=== PATIENT | female | born 1980 | race Caucasian/White ===

== ENCOUNTER 2018-03-01 17:13 | Emergency (ER) | payer BC, OTHER, SELFPAY ==
[2018-03-01 18:14] LABS: Urine Blood 3+ (NEG); Urine Glucose NEGATIVE (NEG); Urine Protein NEGATIVE (NEG); Urine Specific Gravity >1.030 (1.005-1.030); Urine pH 5.5 (5.0-7.0)
[2018-03-01 18:23] LABS: Absolute Monocytes 0.7 K/uL (0.1-1.3); Absolute Neutrophil 9.2 K/uL (1.8-8.0); Basophils % 1.2 % (0-1.3); Eosinophils % 1.2 % (0-4.4); Hematocrit 41.5 % (36.0-45.0); Lymphocytes % 22.7 % (15.3-44.8); MCH 30.2 pg (27.0-35.0); MCV 90.9 fL (80-100); MPV 7.7 fL (7.6-11.3); Monocytes % 5.4 % (3.3-12.3); RBC Red Blood Cell Count 4.56 M/uL (3.86-4.86)
[2018-03-01 18:31] LABS: Bicarbonate 25 mEq/L (21-31); Glucose Level 113 mg/dL (65-120); Potassium 3.8 mEq/L (3.6-5.0); Sodium Level 136 mEq/L (135-145)
[2018-03-01 18:32] LABS: BUN Blood Urea Nitrogen 11 mg/dL (6-20)
--- NOTE | 2018-03-01 19:20 | RAD REPORT ---
EXAM DESCRIPTION: US - Transvaginal OB - 03/01/2018 6:47 pm CLINICAL HISTORY: Vaginal bleeding. COMPARISON: None. FINDINGS: The uterus is normal in size, shape and echotexture. The uterus measures 9.4 x 5.9 x 5.6 c m. The endometrial stripe measures mildly thickened measuring 15 mm. No endometrial sac or other abnorma lity seen. Both ovaries are normal in size, shape and echotexture. The right ovary measures 2.1 x 2.3 x 1.2 cm. The left ovary measures 2.2 x 1.7 x 1.2 cm. No ovarian or parovarian lesions. No adnexal masses. Normal Doppler blood flow was demonstrated to both ovaries. IMPRESSION: No retained products seen.
--- NOTE | 2018-03-01 21:15 | ER ---
Nurse's Notes [facility] Name: Bertha Vargas Age: 38 yrs Sex: Female : 1980 Arrival Date: 03/01/2018 Time: 17:15 Bed 16 Private MD: Diagnosis: Missed Presentation: 03/01 17:18 Presenting complaint: Patient states: "I think I am having a miscarriage.". Transition lk1 of care: patient was not received from another setting of care. Onset of symptoms was February 27, 2018. Care prior to arrival: None. 17:18 Method Of Arrival: Ambulatory lk1 17:18 Acuity: JOSE 3 lk1 Triage Assessment: 17:19 General: Appears in no apparent distress. Behavior is calm, cooperative, appropriate lk1 for age. Pain: Denies pain. : Reports vaginal bleeding that is with clots, heavy flow. 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 - Social history:: Smoking status: Patient/guardian denies using tobacco. Screenin:16 Abuse screen: Denies threats or abuse. Denies injuries from another. Nutritional iw screening: No deficits noted. Tuberculosis screening: No symptoms or risk factors identified. Fall Risk IV access (20 points). Assessment: 18:00 Obstetrical Assessment: General assessment:. General: Appears in no apparent distress. iw comfortable. Pain: Complains of pain in abdomen Quality of pain is described as crampy. Neuro: Level of Consciousness is awake, alert, obeys commands, Oriented to person, place, time, situation. : Reports cramping, vaginal bleeding that is with clots, moderate flow. Derm: Skin is pink, warm \\T\\ dry. Musculoskeletal: Range of motion: intact in all extremities. 19:43 General: Appears in no apparent distress. comfortable, Behavior is calm, cooperative, ao appropriate for age. Pain: Denies pain. Neuro: Level of Consciousness is awake, alert, obeys commands, Oriented to person, place, time, situation, Moves all extremities. Speech is normal, Facial symmetry appears normal. Cardiovascular: Heart tones S1 S2 Capillary refill < 3 seconds Patient's skin is warm and dry. Respiratory: Airway is patent Respiratory effort is even, unlabored, Respiratory pattern is regular, symmetrical. GI: Abdomen is non-distended. : Reports cramping, vaginal bleeding that is with clots, moderate flow. Derm: Skin is pink, warm \\T\\ dry. 21:02 Reassessment: Patient appears in no apparent distress at this time. No changes from ao previously documented assessment. Patient and/or family updated on plan of care and expected duration. Pain level reassessed. Patient is alert, oriented x 3, equal unlabored respirations, skin warm/dry/pink. Marcelo RN PATIENT SERVICES at bedside doing a pelvic exam. Vital Signs: 17:19 BP 152 / 98; Pulse 100; Resp 15; Temp 97.6(TE); Pulse Ox 100% on R/A; Weight 95.25 kg lk1 (R); Height 5 ft. 4 in. (162.56 cm) (R); Pain 0/10; 18:43 BP 151 / 87; Pulse 101; Resp 16; Pulse Ox 100% ; mh5 19:43 BP 143 / 90; Pulse 97; Resp 18; Pulse Ox 100% on R/A; Pain 0/10; ao 21:02 BP 145 / 86; Pulse 95; Resp 18; Pulse Ox 98% ; Pain 0/10; ao 17:19 Body Mass Index 36.05 (95.25 kg, 162.56 cm) lk1 Vitals: 21:30 Heart Tones Not detectable. ao ED Course: 17:15 Patient arrived in ED. as 17:19 Triage completed. lk1 17:20 Arm band placed on right wrist. lk1 17:47 Marcelo Messer NP is PHCP. pm1 17:47 Eugenio Sethi MD is Attending Physician. pm1 18:00 Patient has correct armband on for positive identification. iw 18:04 Laura Chavez, RN is Primary Nurse. iw 18:15 Initial lab(s) drawn, by me, sent to lab. Inserted saline lock: 22 gauge in left iw antecubital area, using aseptic technique. Blood collected. 18:46 US Transvaginal Ob In Process Unspecified. EDMS 21:12 Jammie Barron MD is Referral Physician. pm1 21:28 No provider procedures requiring assistance completed. IV discontinued, intact, ao bleeding controlled, No redness/swelling at site. Pressure dressing applied. Administered Medications: No medications were administered Point of Care Testing: Urine : 21:31 None order ao Outcome: 21:15 Discharge ordered by . pm1 21:30 Discharged to home ambulatory. ao 21:30 Condition: stable 21:30 Discharge instructions given to patient, Instructed on discharge instructions, follow up and referral plans. Demonstrated understanding of instructions, follow-up care, medications. 21:31 Patient left the ED. ao 21:53 Patient left the ED. ao Signatures: Dispatcher [employer] EDMyla Wilburn Irene, RN RN iw Kluge, Leah, RN RN lk1 Anmol Gilmore RN RN ao Marinas, Patrick, NP RN PATIENT SERVICES pm1 Aliyah Roach [facility]
--- NOTE | 2018-03-01 21:15 | EDPHYS ---
Physician Documentation [facility] Name: Bertha Vargas Age: 38 yrs Sex: Female : 1980 Arrival Date: 03/01/2018 Time: 17:15 Bed 16 Private MD: ED Physician Eugenio Sethi HPI: 03/01 19:18 This 38 yrs old Female presents to ER via Ambulatory with complaints of pm1 Vaginal Bleeding, + Preg <12wks. 19:18 The patient presents to the emergency department with abdominal pain, of the suprapubic pm1 area, that started today, described as crampy, vaginal bleeding, that is light, with tissue. The estimated gestational age is 6 weeks. course: Leakage of Fluid: none appreciated, Ultrasound: the patient has not had an ultrasound, Risk/complications: no obvious risks or complications are appreciated. Previous pregnancies: in previous pregnancies patient has had no complications. Associated signs and symptoms: Pertinent negatives: chest pain, dysuria, fever, nausea, shortness of breath, vaginal discharge, vomiting. The patient has not experienced similar symptoms in the past. The patient has not recently seen a physician. Patient with vaginal bleeding throughout this . Bleeding light for the past week but increased today. Patient passed what looked like the product of conception in the toilet prior to arrival. Patient took a picture. Patient without bleeding and resolution of abdominal cramping after passing possible product of conception. 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 - Social history:: Smoking status: Patient/guardian denies using tobacco. ROS: 19:18 Constitutional: Negative for fever, chills, and weight loss, Eyes: Negative for injury, pm1 pain, redness, and discharge, ENT: Negative for injury, pain, and discharge, Neck: Negative for injury, pain, and swelling, Cardiovascular: Negative for chest pain, palpitations, and edema, Respiratory: Negative for shortness of breath, cough, wheezing, and pleuritic chest pain. 19:18 Back: Negative for injury and pain, MS/Extremity: Negative for injury and deformity, Skin: Negative for injury, rash, and discoloration, Neuro: Negative for headache, weakness, numbness, tingling, and seizure. 19:18 Abdomen/GI: Positive for abdominal pain, of the suprapubic area. 19:18 : Positive for vaginal bleeding, Negative for urinary symptoms, pelvic pain. Exam: 19:18 Constitutional: This is a well developed, well nourished patient who is awake, alert, pm1 and in no acute distress. Head/Face: Normocephalic, atraumatic. Neck: Trachea midline, no thyromegaly or masses palpated, and no cervical lymphadenopathy. Supple, full range of motion without nuchal rigidity, or vertebral point tenderness. No Meningismus. Chest/axilla: Normal chest wall appearance and motion. Nontender with no deformity. No lesions are appreciated. Cardiovascular: Regular rate and rhythm with a normal S1 and S2. No gallops, murmurs, or rubs. Normal PMI, no JVD. No pulse deficits. Respiratory: Lungs have equal breath sounds bilaterally, clear to auscultation and percussion. No rales, rhonchi or wheezes noted. No increased work of breathing, no retractions or nasal flaring. Abdomen/GI: Soft, non-tender, with normal bowel sounds. No distension or tympany. No guarding or rebound. No evidence of tenderness throughout. Back: No spinal tenderness. No costovertebral tenderness. Full range of motion. Skin: Warm, dry with normal turgor. Normal color with no rashes, no lesions, and no evidence of cellulitis. MS/ Extremity: Pulses equal, no cyanosis. Neurovascular intact. Full, normal range of motion. 19:18 Neuro: Orientation: is normal, Mentation: is normal, Motor: is normal, moves all fours. 21:04 : Pelvic Exam: External exam: is normal, Speculum exam: scant bleeding, bimanual exam pm1 reveals normal findings, Anmol BHANDARI and Cara Richards. Sexual behavior: the patient is sexually active. Vital Signs: 17:19 BP 152 / 98; Pulse 100; Resp 15; Temp 97.6(TE); Pulse Ox 100% on R/A; Weight 95.25 kg lk1 (R); Height 5 ft. 4 in. (162.56 cm) (R); Pain 0/10; 18:43 BP 151 / 87; Pulse 101; Resp 16; Pulse Ox 100% ; mh5 19:43 BP 143 / 90; Pulse 97; Resp 18; Pulse Ox 100% on R/A; Pain 0/10; ao 21:02 BP 145 / 86; Pulse 95; Resp 18; Pulse Ox 98% ; Pain 0/10; ao 17:19 Body Mass Index 36.05 (95.25 kg, 162.56 cm) lk1 MDM: 17:48 Patient medically screened. pm1 21:11 Data reviewed: vital signs. Data interpreted: Pulse oximetry: on room air is 98 %. pm1 Interpretation: normal. Counseling: I had a detailed discussion with the patient and/or guardian regarding: the historical points, exam findings, and any diagnostic results supporting the discharge/admit diagnosis, lab results, radiology results, the need for outpatient follow up, for definitive care, an OB/Gyne specialist, repeat beta hcg in 48 hours, to return to the emergency department if symptoms worsen or persist or if there are any questions or concerns that arise at home. 03/01 17:39 Order name: Urine Dipstick--Ancillary (enter results); Complete Time: 18:26 bd 03/01 17:39 Order name: Urine --Ancillary (enter results); Complete Time: 18:26 bd 03/01 17:48 Order name: Quantitative Hcg; Complete Time: 19:23 pm1 03/01 17:48 Order name: Abo/rh Typing; Complete Time: 19:05 pm1 03/01 17:48 Order name: Basic Metabolic Panel; Complete Time: 19:23 pm1 03/01 17:48 Order name: CBC with Diff; Complete Time: 18:26 pm1 03/01 17:48 Order name: IV Saline Lock; Complete Time: 18:26 pm1 03/01 17:48 Order name: Labs collected and sent; Complete Time: 18:26 pm1 03/01 17:48 Order name: NPO; Complete Time: 18:26 pm1 03/01 17:58 Order name: US Transvaginal Ob; Complete Time: 19:23 pm1 03/01 19:24 Order name: Pelvic Exam Setup; Complete Time: 19:41 pm1 Administered Medications: No medications were administered Point of Care Testing: Urine : 21:31 None order ao Disposition: 03/01/18 21:15 Discharged to Home. Impression: Missed . - Condition is Stable. - Discharge Instructions: Miscarriage. - Medication Reconciliation Form, Thank You Letter form. - Follow up: Emergency Department; When: As needed; Reason: Worsening of condition. Follow up: Jammie Barron MD; When: Tomorrow; Reason: Recheck today's complaints, Continuance of care, Repeat Beta-HCG (48 Hours), Re-evaluation by your physician. - Problem is new. - Symptoms have improved. Addendum: 03/06/2018 03:04 Co-signature as Attending Physician, Eugenio Sethi MD I agree with the assessment and t w4 plan of care. Signatures: Dispatcher [employer] Lianna Valdivia RN RN lk1 Anmol Gilmore RN RN ao Marinas, Patrick, BULK MATERIALS HANDLING PLANT OPERATOR B[employer]S HANDLING PLANT OPERATOR pm1 Eugenio Sethi MD MD tw4
== END 2018-03-01 21:53 | disposition home or self-care (01) ==
LOC: ER 17:13
DX: O02.1 Missed abortion (principal)
CPT/HCPCS: 36415; 76817; 80048; 81003; 81025; 84702; 85025; 86900; 86901; 99284